=== PATIENT | male | born 1950 | race Caucasian/White ===

== ENCOUNTER → 2016-04-09 | Outpatient (REF) | payer MEDICARE, OTHER ==
[2016-04-09 12:12] LABS: ALBUMIN 3.8 GM/DL (3.2-5.2); ALBUMIN/GLOBULIN RATIO 1.09 (1.00-1.93); ALKALINE PHOSPHATASE 95 U/L (45-117); ALT/SGPT 47 U/L (12-78); ANION GAP 9 MEQ/L (8-16); AST/SGOT 26 U/L (15-37); BILIRUBIN,TOTAL 1.1 MG/DL (0.2-1.0); BLOOD UREA NITROGEN 13 MG/DL (7-18); CALCIUM LEVEL 8.8 MG/DL (8.8-10.2); CARBON DIOXIDE LEVEL 29 MEQ/L (21-32); CHLORIDE LEVEL 105 MEQ/L (98-107); CHOLESTEROL LEVEL 168 MG/DL (<200); CREATININE FOR GFR 0.85 MG/DL (0.70-1.30); GLOMERULAR FILTRATION RATE > 60.0 (>49); GLUCOSE, FASTING 109 MG/DL (80-110); POTASSIUM SERUM 4.2 MEQ/L (3.5-5.1); SODIUM LEVEL 143 MEQ/L (136-145); TOTAL PROTEIN 7.3 GM/DL (6.4-8.2); TRIGLYCERIDES LEVEL 92 MG/DL (<150)
== END ==
LOC: M SFHCPLAZ 09:11
PROVIDERS: ATTEND Family Medicine
DX: E78.5 Hyperlipidemia, unspecified (principal); R97.20 Elevated prostate specific antigen [PSA]

== ENCOUNTER → 2016-08-12 | Outpatient (CLI) | payer MEDICARE, OTHER ==
[~2016-08-12] VITALS: Ht 182.9 cm; Wt 99.8 kg
[~2016-08-12] MED LIST: ALPR0.25 PO; ASPI1TAB PO; ASPI81CH PO; ATOR1TAB21 PO; CITA20TA4 PO; LIDOCAINE 2% INJ 100 MG/5 ML SDV (FOR ANES.) As Ordered ONE; NS 1,000 ML IV SCH; PROPOFOL 200 MG/20 ML VIAL As Ordered ONE
--- NOTE | 2016-08-12 11:35 | ROOR ---
Patient Name: Mateus Diaz Procedure Date: 08/12/2016 11:15 AM Date of : 1950 Age: 65 Room: [facility] Gender: Male Note Status: Finalized Procedure: Total Colonoscopy to Cecum Indications: Screening for colorectal malignant neoplasm, Last colonoscopy: 2006 Providers: Alexander Alonso MD Referring MD: Derick Darden MD Requesting Provider: Medicines: Monitored Anesthesia Care Complications: No immediate complications. Procedure: Pre-Anesthesia Assessment: - The heart rate, respiratory rate, oxygen saturations, blood pressure, adequacy of pulmonary ventilation, and response to care were monitored throughout the procedure. The Colonoscope was introduced through the anus and advanced to the cecum, identified by appendiceal orifice and ileocecal valve. The colonoscopy was performed without difficulty. The patient tolerated the procedure well. The quality of the bowel preparation was good. Findings: The perianal and digital rectal examinations were normal. Non-bleeding internal hemorrhoids were found during retroflexion. The hemorrhoids were small and Grade I (internal hemorrhoids that do not prolapse). A diminutive polyp was found at 40 cm proximal to the anus. The polyp was sessile. The polyp was removed with a jumbo cold forceps. Resection and retrieval were complete. The exam was otherwise without abnormality on direct and retroflexion views. Multiple small and large-mouthed diverticula were found in the recto-sigmoid colon, sigmoid colon and descending colon. Impression: - Non-bleeding internal hemorrhoids. - One diminutive polyp at 40 cm proximal to the anus, removed with a jumbo cold forceps. Resected and retrieved. - The examination was otherwise normal on direct and retroflexion views. - Diverticulosis in the recto-sigmoid colon, in the sigmoid colon and in the descending colon. - The exam was otherwise normal to the cecum. Recommendation: - Patient has a contact number available for emergencies. The signs and symptoms of potential delayed complications were discussed with the patient. Return to normal activities tomorrow. Written discharge instructions were provided to the patient. - Discharge patient to home. - Continue present medications. - Await pathology results. - Telephone GI clinic for pathology results in 1 week. - Check Portal Online for Path Results.([email or web address] - Repeat colonoscopy in 10 years for surveillance based on pathology results. - Return to referring physician. - The findings and recommendations were discussed with the patient's family. Alexander Alonso MD Alexander Alonso MD 08/12/2016 11:35:27 AM This report has been signed electronically. Number of Addenda: 0 Note Initiated On: 08/12/2016 11:15 AM Estimated Blood Loss: Estimated blood loss: none.
[2016-08-12 11:55] VITALS: BP 133/74
== END | disposition home or self-care (01) ==
LOC: M OPP 09:58
PROVIDERS: ATTEND Internal Medicine Gastroenterology
DX: Z12.11 Encounter for screening for malignant neoplasm of colon (principal); D12.5 Benign neoplasm of sigmoid colon; K64.0 First degree hemorrhoids; K57.30 Diverticulosis of large intestine without perforation or abscess without bleeding; E78.5 Hyperlipidemia, unspecified; F32.9 Major depressive disorder, single episode, unspecified; F41.9 Anxiety disorder, unspecified; M19.90 Unspecified osteoarthritis, unspecified site; Z85.51 Personal history of malignant neoplasm of bladder; Z92.21 Personal history of antineoplastic chemotherapy; Z79.82 Long term (current) use of aspirin; Z79.899 Other long term (current) drug therapy

== ENCOUNTER → 2016-10-01 | Outpatient (REF) | payer MEDICARE, OTHER ==
[~2016-10-01] MED LIST changes: -LIDOCAINE 2% INJ 100 MG/5 ML SDV (FOR ANES.) As Ordered ONE; -NS 1,000 ML IV SCH; -PROPOFOL 200 MG/20 ML VIAL As Ordered ONE
[2016-10-01 12:25] LABS: MEAN CORPUSCULAR HEMOGLOBIN 31.4 pg (27.0-33.0); MEAN CORPUSCULAR HGB CONC 33.8 g/dl (32.0-36.5); MEAN CORPUSCULAR VOLUME 93.1 fl (80.0-96.0); RED CELL DISTRIBUTION WIDTH 12.4 % (11.5-14.5); WHITE BLOOD COUNT 8.8 K/mm3 (4.0-10.0)
[2016-10-01 12:42] LABS: ALBUMIN 3.8 GM/DL (3.2-5.2); ALBUMIN/GLOBULIN RATIO 1.09 (1.00-1.93); ALKALINE PHOSPHATASE 92 U/L (45-117); ALT/SGPT 39 U/L (12-78); ANION GAP 7 MEQ/L (8-16); AST/SGOT 23 U/L (15-37); BILIRUBIN,TOTAL 0.9 MG/DL (0.2-1.0); BLOOD UREA NITROGEN 16 MG/DL (7-18); CALCIUM LEVEL 8.5 MG/DL (8.8-10.2); CARBON DIOXIDE LEVEL 29 MEQ/L (21-32); CHLORIDE LEVEL 108 MEQ/L (98-107); CHOLESTEROL LEVEL 166 MG/DL (<200); GLOMERULAR FILTRATION RATE > 60.0 (>49); GLUCOSE, FASTING 116 MG/DL (80-110); POTASSIUM SERUM 4.7 MEQ/L (3.5-5.1); SODIUM LEVEL 144 MEQ/L (136-145); TOTAL PROTEIN 7.3 GM/DL (6.4-8.2); TRIGLYCERIDES LEVEL 83 MG/DL (<150)
== END ==
LOC: M SFHCADAM 09:39
PROVIDERS: ATTEND Family Medicine
DX: C67.9 Malignant neoplasm of bladder, unspecified (principal); E78.5 Hyperlipidemia, unspecified

== ENCOUNTER → 2017-04-23 | Outpatient (REF) | payer MEDICARE, OTHER ==
[2017-04-23 13:24] LABS: ALBUMIN 4.2 GM/DL (3.2-5.2); ALBUMIN/GLOBULIN RATIO 1.24 (1.00-1.93); ALKALINE PHOSPHATASE 98 U/L (45-117); ALT/SGPT 42 U/L (12-78); ANION GAP 8 MEQ/L (8-16); AST/SGOT 29 U/L (7-37); BILIRUBIN,TOTAL 1.3 MG/DL (0.2-1.0); BLOOD UREA NITROGEN 24 MG/DL (7-18); CARBON DIOXIDE LEVEL 29 MEQ/L (21-32); CHLORIDE LEVEL 105 MEQ/L (98-107); CHOLESTEROL LEVEL 170 MG/DL (<200); CHOLESTEROL RISK RATIO 3.148 (<5); CREATININE FOR GFR 0.99 MG/DL (0.70-1.30); GLOMERULAR FILTRATION RATE > 60.0 (>49); GLUCOSE, FASTING 131 MG/DL (70-100); HDL CHOLESTEROL 54 MG/DL (>40); LDL CHOLESTEROL 100.8 MG/DL (<100); NON-HDL-C 116 MG/DL; POTASSIUM SERUM 4.1 MEQ/L (3.5-5.1); SODIUM LEVEL 142 MEQ/L (136-145); TOTAL PROTEIN 7.6 GM/DL (6.4-8.2); TRIGLYCERIDES LEVEL 76 MG/DL (<150)
== END ==
LOC: M SFHCADAM 08:21
DX: E78.5 Hyperlipidemia, unspecified (principal)
CPT/HCPCS: 80053

== ENCOUNTER → 2017-09-23 | Outpatient (REF) | payer MEDICARE, OTHER | LOC: M LAB REF 14:10 | DX: C44.521 Squamous cell carcinoma of skin of breast (principal) | CPT/HCPCS: 88305 ==

== ENCOUNTER → 2017-10-27 | Outpatient (REF) | payer MEDICARE, OTHER ==
[2017-10-27 15:00] LABS: ALBUMIN 4.1 GM/DL (3.2-5.2); ALBUMIN/GLOBULIN RATIO 1.24 (1.00-1.93); ALKALINE PHOSPHATASE 79 U/L (45-117); ALT/SGPT 48 U/L (12-78); ANION GAP 8 MEQ/L (8-16); AST/SGOT 33 U/L (7-37); BILIRUBIN,TOTAL 0.8 MG/DL (0.2-1.0); BLOOD UREA NITROGEN 16 MG/DL (7-18); CALCIUM LEVEL 9.1 MG/DL (8.8-10.2); CARBON DIOXIDE LEVEL 30 MEQ/L (21-32); CHLORIDE LEVEL 107 MEQ/L (98-107); CHOLESTEROL LEVEL 168 MG/DL (<200); CHOLESTEROL RISK RATIO 3.169 (<5); CREATININE FOR GFR 0.85 MG/DL (0.70-1.30); GLOMERULAR FILTRATION RATE > 60.0 (>49); GLUCOSE, FASTING 106 MG/DL (70-100); HDL CHOLESTEROL 53 MG/DL (>40); LDL CHOLESTEROL 100 MG/DL (<100); NON-HDL-C 115 MG/DL; POTASSIUM SERUM 4.6 MEQ/L (3.5-5.1); SODIUM LEVEL 145 MEQ/L (136-145); TOTAL PROTEIN 7.4 GM/DL (6.4-8.2); TRIGLYCERIDES LEVEL 73 MG/DL (<150)
[2017-10-27 15:51] LABS: ESTIMATED AVERAGE GLUCOSE 128 MG/DL (60-110); HEMOGLOBIN A1c 6.1 %
== END ==
LOC: M SFHCADAM 08:10
DX: E78.5 Hyperlipidemia, unspecified (principal); R73.01 Impaired fasting glucose
CPT/HCPCS: 80053

== ENCOUNTER → 2017-12-10 | Outpatient (CLI) | payer MEDICARE, OTHER | LOC: M RAD 09:33 | DX: N43.2 Other hydrocele (principal); N50.3 Cyst of epididymis; Z23 Encounter for immunization; I10 Essential (primary) hypertension | CPT/HCPCS: 76870 ==

== ENCOUNTER → 2018-01-17 | Outpatient (REF) | payer MEDICARE, OTHER ==
[2018-01-17 18:07] LABS: HEMATOCRIT 44.5 % (42.0-52.0); HEMOGLOBIN 14.7 g/dl (13.5-17.5); MEAN CORPUSCULAR HEMOGLOBIN 30.9 pg (27.0-33.0); MEAN CORPUSCULAR VOLUME 93.5 fl (80.0-96.0); PLATELET COUNT, AUTOMATED 228 10^3/uL (150-450); RED BLOOD COUNT 4.76 10^6/uL (4.30-6.10); RED CELL DISTRIBUTION WIDTH 12.1 % (11.5-14.5); WHITE BLOOD COUNT 8.2 10^3/uL (4.0-10.0)
[2018-01-17 18:08] LABS: ANION GAP 4 MEQ/L (8-16); BLOOD UREA NITROGEN 19 MG/DL (7-18); CALCIUM LEVEL 8.4 MG/DL (8.8-10.2); CARBON DIOXIDE LEVEL 32 MEQ/L (21-32); CHLORIDE LEVEL 104 MEQ/L (98-107); CREATININE FOR GFR 0.85 MG/DL (0.70-1.30); GLOMERULAR FILTRATION RATE > 60.0 (>49); GLUCOSE, FASTING 95 MG/DL (70-100); POTASSIUM SERUM 4.5 MEQ/L (3.5-5.1); SODIUM LEVEL 140 MEQ/L (136-145)
[2018-01-17 18:25] LABS: INR 0.96; PROTHROMBIN TIME 12.8 SECONDS (12.1-14.4)
[2018-01-17 18:26] LABS: PARTIAL THROMBOPLASTIN TIME 30.8 SECONDS (25.4-37.6)
== END ==
LOC: M LABDRWAD 16:43
DX: Z01.812 Encounter for preprocedural laboratory examination (principal); C67.9 Malignant neoplasm of bladder, unspecified
CPT/HCPCS: 80048

== ENCOUNTER → 2019-01-11 | Outpatient (REF) | payer MEDICARE, OTHER ==
[~2019-01-11] MED LIST changes: -ASPI1TAB PO; -ASPI81CH PO; +ASPI81CH49 PO; +ASPI81TA26 PO; -CITA20TA4 PO; +CITA20TA6 PO
[2019-01-11 14:03] LABS: ALBUMIN 3.8 GM/DL (3.2-5.2); ALT/SGPT 51 U/L (12-78); BILIRUBIN,TOTAL 1.1 MG/DL (0.2-1.0); BLOOD UREA NITROGEN 20 MG/DL (7-18); CALCIUM LEVEL 9.4 MG/DL (8.8-10.2); CARBON DIOXIDE LEVEL 31 MEQ/L (21-32); CHLORIDE LEVEL 105 MEQ/L (98-107); CHOLESTEROL LEVEL 175 MG/DL (<200); CHOLESTEROL RISK RATIO 3.181 (<5); CREATININE FOR GFR 0.88 MG/DL (0.70-1.30); GLOMERULAR FILTRATION RATE > 60.0 (>42); GLUCOSE, FASTING 115 MG/DL (70-100); HDL CHOLESTEROL 55 MG/DL (>40); LDL CHOLESTEROL 106 MG/DL (<100); NON-HDL-C 120 MG/DL; POTASSIUM SERUM 4.6 MEQ/L (3.5-5.1); SODIUM LEVEL 141 MEQ/L (136-145); TOTAL PROTEIN 7.3 GM/DL (6.4-8.2); TRIGLYCERIDES LEVEL 72 MG/DL (<150)
[2019-01-11 14:10] LABS: HEMOGLOBIN A1c 6.6 %
== END ==
LOC: M SFHCADAM 09:12
PROVIDERS: ATTEND Family Medicine
DX: E78.5 Hyperlipidemia, unspecified (principal); R73.01 Impaired fasting glucose

== ENCOUNTER → 2019-03-24 | Outpatient (REF) | payer MEDICARE, OTHER | LOC: M LAB REF 09:17 | PROVIDERS: ATTEND Dermatology | DX: L82.1 Other seborrheic keratosis (principal) | CPT/HCPCS: 11102; 11103; 17000; 17003; 88305; G0463 ==

== ENCOUNTER → 2019-07-19 | Outpatient (REF) | payer MEDICARE, OTHER ==
[2019-07-19 13:36] LABS: HEMOGLOBIN A1c 6.4 %
[2019-07-19 13:42] LABS: BLOOD UREA NITROGEN 19 MG/DL (7-18); CREATININE FOR GFR 0.87 MG/DL (0.70-1.30); GLUCOSE, FASTING 118 MG/DL (70-100)
[2019-07-19 13:43] LABS: ALBUMIN 3.9 GM/DL (3.2-5.2); ALT/SGPT 69 U/L (12-78); BILIRUBIN,TOTAL 0.9 MG/DL (0.2-1.0); CALCIUM LEVEL 8.9 MG/DL (8.8-10.2); CARBON DIOXIDE LEVEL 29 MEQ/L (21-32); CHLORIDE LEVEL 108 MEQ/L (98-107); CHOLESTEROL LEVEL 170 MG/DL (<200); CHOLESTEROL RISK RATIO 3.035 (<5); GLOMERULAR FILTRATION RATE > 60.0 (>42); HDL CHOLESTEROL 56 MG/DL (>40); LDL CHOLESTEROL 102 MG/DL (<100); NON-HDL-C 114 MG/DL; POTASSIUM SERUM 4.8 MEQ/L (3.5-5.1); SODIUM LEVEL 142 MEQ/L (136-145); TOTAL PROTEIN 7.2 GM/DL (6.4-8.2); TRIGLYCERIDES LEVEL 62 MG/DL (<150)
== END ==
LOC: M SFHCADAM 09:15
PROVIDERS: ATTEND Family Medicine
DX: E78.5 Hyperlipidemia, unspecified (principal); R73.01 Impaired fasting glucose; C67.9 Malignant neoplasm of bladder, unspecified

== ENCOUNTER → 2019-07-19 | Outpatient (REF) | payer MEDICARE, OTHER ==
[2019-07-19 13:31] LABS: ALT/SGPT 66 U/L (12-78); BLOOD UREA NITROGEN 20 MG/DL (7-18); CALCIUM LEVEL 9.3 MG/DL (8.8-10.2); CARBON DIOXIDE LEVEL 29 MEQ/L (21-32); CHLORIDE LEVEL 107 MEQ/L (98-107); CREATININE FOR GFR 0.88 MG/DL (0.70-1.30); GLOMERULAR FILTRATION RATE > 60.0 (>42); GLUCOSE, FASTING 112 MG/DL (70-100); POTASSIUM SERUM 4.8 MEQ/L (3.5-5.1); SODIUM LEVEL 140 MEQ/L (136-145); TOTAL PROTEIN 7.2 GM/DL (6.4-8.2)
== END ==
LOC: M LABDRWAD 12:39
PROVIDERS: ATTEND Urology
DX: C67.9 Malignant neoplasm of bladder, unspecified (principal)

== ENCOUNTER → 2019-07-26 | Outpatient (CLI) | payer MEDICARE, OTHER ==
[~2019-07-26] MED LIST changes: +ISOVUE-370 76% 100ML VIAL As Ordered ONE
--- NOTE | 2019-07-26 15:25 | REP ---
CT UROGRAPHY, MULTIPHASE POSTCONTRAST AND PRECONTRAST CT STUDY ABDOMEN AND PELVIS: HISTORY: Bladder carcinoma. COMPARISON STUDY: January 06, 2016. CT CONTRAST DOSE: 100 mL of intravenous Isovue 370. CT FINDINGS: Preliminary digital department store manager radiograph is unremarkable. The lung bases are clear on axial CT images. The liver is normal in size homogeneous in texture. There are two small subcentimeter cysts in the liver. There is a small area of calcification and hypodensity in the right lobe posteriorly consistent with an old injury. The hypodensity measures approximately 15 mm in greatest diameter. This is unchanged from the 2016 prior study and is felt to be benign. No abnormalities noted in the pancreas. The gallbladder is unremarkable. Small and large intestinal bowel loops are remarkable for left colonic diverticulosis without CT evidence of diverticulitis. Normal appendix. Vascular calcifications noted. Normal aortic caliber. There is no evidence of hydronephrosis on either side. No bladder mass-lesion is evident. No evidence of intrarenal calculus is observed. Prostate and seminal vesicles are unremarkable. Delayed postcontrast injection images show no evidence of filling defect in the urinary bladder or upper tract collecting system on either side. IMPRESSION: No evidence of mass or adenopathy. Left colonic diverticulosis. No acute abnormality. No splenic abnormality is observed. Normal adrenal glands are seen bilaterally. Electronically Signed by Vini Rico MD 07/26/2019 05:19 P
--- NOTE | 2019-07-26 15:42 | REP ---
CHEST X-RAY: Two views. HISTORY: Bladder cancer. COMPARISON STUDY: April 01, 2015. FINDINGS: The lungs are symmetrically aerated and free of infiltrate. Pleural angles are sharp. Heart is not enlarged. There are mild degenerative changes in the thoracic spine and aorta. Pulmonary vasculature is not increased. IMPRESSION: No active disease. Electronically Signed by Vini Rico MD 07/26/2019 05:20 P
== END ==
LOC: M RAD 12:35
PROVIDERS: ATTEND Urology
DX: C67.9 Malignant neoplasm of bladder, unspecified (principal)
CPT/HCPCS: 71046; 74178; Q9967

== ENCOUNTER → 2020-09-12 | Outpatient (CLI) | payer MEDICARE, OTHER ==
[~2020-09-12] MED LIST changes: -ISOVUE-370 76% 100ML VIAL As Ordered ONE
[2020-09-12 11:17] LABS: ALT/SGPT 56 U/L (12-78); BILIRUBIN,TOTAL 0.8 MG/DL (0.2-1.0); BLOOD UREA NITROGEN 17 MG/DL (7-18); CALCIUM LEVEL 9.4 MG/DL (8.8-10.2); CARBON DIOXIDE LEVEL 30 MEQ/L (21-32); CHLORIDE LEVEL 108 MEQ/L (98-107); CHOLESTEROL LEVEL 162 MG/DL (<200); CHOLESTEROL RISK RATIO 3.306 (<5); CREATININE FOR GFR 0.83 MG/DL (0.70-1.30); GLOMERULAR FILTRATION RATE > 60.0 (>42); GLUCOSE, FASTING 129 MG/DL (70-100); HDL CHOLESTEROL 49 MG/DL (>40); LDL CHOLESTEROL 99 MG/DL (<100); NON-HDL-C 113 MG/DL; POTASSIUM SERUM 4.5 MEQ/L (3.5-5.1); SODIUM LEVEL 143 MEQ/L (136-145); TOTAL PROTEIN 7.5 GM/DL (6.4-8.2); TRIGLYCERIDES LEVEL 72 MG/DL (<150)
== END ==
LOC: M PLALAB 08:20
PROVIDERS: ATTEND Family Medicine
DX: E78.5 Hyperlipidemia, unspecified (principal)

== ENCOUNTER 2020-10-18 05:19 | Inpatient (IN) | payer MEDICARE, OTHER ==
[~2020-10-18] VITALS: Ht 182.9 cm; Wt 97.5 kg
[2020-10-18 06:48] LABS: BILIRUBIN, URINE MANUAL NEGATIVE (NEGATIVE); GLUCOSE, URINE (UA) MANUAL 1+(100 MG/DL) mg/dL (NEGATIVE); KETONE, URINE MANUAL NEGATIVE (NEGATIVE); UROBILINOGEN, URINE MANUAL NORMAL (NORMAL)
[2020-10-18 06:50] LABS: BACTERIA, URINE NONE SEEN; HYALINE CAST, URINE NONE SEEN /lpf (0-1); RBC, URINE TNTC /hpf (0-3); SQUAMOUS EPITHELIAL CELL URINE NONE SEEN /hpf (SMALL AMT)
[2020-10-18 06:50] LABS: BASO # 0.1 10^3/uL (0.0-0.2); BASO % 1.3 % (0.0-1.0); EOS # 0.1 10^3/uL (0.0-0.5); HEMATOCRIT 42.5 % (42.0-52.0); HEMOGLOBIN 14.2 g/dl (13.5-17.5); LYMPH # 1.1 10^3/uL (1.5-5.0); LYMPH % 14.6 % (24.0-44.0); MEAN CORPUSCULAR HEMOGLOBIN 30.9 pg (27.0-33.0); MEAN CORPUSCULAR HGB CONC 33.4 g/dl (32.0-36.5); MEAN CORPUSCULAR VOLUME 92.4 fl (80.0-96.0); MONO # 0.6 10^3/uL (0.0-0.8); MONO % 7.2 % (2.0-8.0); NEUTROPHILS # 5.9 10^3/uL (1.5-8.5); NEUTROPHILS % 75.4 % (36.0-66.0); PLATELET COUNT, AUTOMATED 204 10^3/uL (150-450); WHITE BLOOD COUNT 7.8 10^3/uL (4.0-10.0)
[2020-10-18] MEDS ORDERED: LIDOCAINE 2% 5ML JELLY UROJET As Ordered ONE (07:50)
[2020-10-18] MEDS ORDERED: BACTRIM 160MG/800MG DS TAB PO ONE (08:40)
[2020-10-18] MEDS ORDERED: LIDOCAINE 2% 5ML JELLY UROJET TOP ONE (08:45)
[2020-10-18] MEDS ORDERED: HOME MED LIST COMPLETE! XX SCH (08:50)
[2020-10-18] MEDS ORDERED: ALPRAZolam 0.25 MG TAB PO ONE (08:50)
[2020-10-18] MEDS ORDERED: ALPRAZolam 0.25 MG TAB PO PRN (09:40)
[2020-10-18] MEDS ORDERED: GLUCOSE 4GM CHEW TABLET PO PRN (09:45)
[2020-10-18] MEDS ORDERED: GLUCAGON INJ 1MG VIAL SC PRN (09:45)
[2020-10-18] MEDS ORDERED: DEXTROSE 50% 50 ML SYRINGE IV PRN (09:45)
[2020-10-18 09:54] LABS: RSV AMPLIFICATION NEGATIVE (NEGATIVE)
--- NOTE | 2020-10-18 10:01 | HPEPDOC ---
General Date of Admission 10/18/20 Date of Service: Oct 18, 2020 Chief Complaint The patient is a 70-year-old male admitted with a reason for visit of Unable To Urinate. Source: Patient Exam Limitations: No limitations History of Present Illness Patient is 71 years old male with past medical history of hyperlipidemia, type 2 diabetes, BPH, hypertension, bladder cancer status post TURB presented to hospital with hematuria. Patient stated that he had TURB on October 02 and after that he had intermittent hematuria. Yesterday he noticed that hematuria progressively became worse he developed blood clots in his urine and subsequently urinary retention. He went to ER Ernst catheter was placed. ER contacted to urologist Dr. Mejia who recommended continuous bladder irrigation. In ER patient was found to have no leukocytosis, hemoglobin of 14.2. Patient denied fever, chills, nausea, syncope, chest pain, palpitations, diarrhea Home Medications Scheduled Aspirin (Aspirin EC) 81 Mg Tab, 81 MG PO DAILY, (Reported) Atorvastatin Calcium (Atorvastatin Calcium) 20 Mg Tab, 20 MG PO QPM, (Reported) Citalopram Hydrobromide (Citalopram HBr) 20 Mg Tab, 20 MG PO DAILY, (Reported) Scheduled PRN Alprazolam (Alprazolam) 0.25 Mg Tab, 0.25 MG PO BID PRN for ANXIETY, (Reported) Allergies Coded Allergies: No Known Allergies (Unverified , 08/04/16) Past Medical History Medical History HYPERLIPIDEMIA TYPE 2 DM, DX 09/28 BPH RENAL STONES--S/P LITHOTRIPSY HTN GILBERT'S SYNDROME BPPV ANXIETY DISORDER BLADDER CANCER 02/24 [place] (NO PATH), S/P BCG TX; CYSTO Q 6 MO Surgical History Resection of bladder cancer in 2020 GAYLE REMOVED FROM RIGHT PENTECOSTAL 7 YEARS OLD LITHOTRIPSY 1989 COLONOSCOPY 2006 BLADDER CANCER--CYSTO 01/20/16 CYSTOSCOPY 09/24 BLADDER SURGERY 09/24 [facility] LEFT BREAST 2018 Family History FATHER: , CORONARY ARTERY DISEASE, BLADDER CA, ANXIETY MOTHER: , ALZHEIMER PATERNAL GRAND MOTHER: STOMACH CA NO DM, REVIEWED, UPDATEDDENIES FH OF MELANOMA OR SKIN CANCER. Social History * Smoker: Denies Alcohol: Denies Drugs: denies A-FIB/CHADSVASC A-FIB History Current/History of A-Fib/PAF?: No Current PO Anticoag Therapy: No Review of Systems Constitutional: Denies: Chills, Fever Eyes: Denies: Pain ENT: Denies: Head Aches Skin: Denies: Rash Pulmonary: Denies: Dyspnea Cardiovascular: Denies: Chest Pain Gastrointestinal: Denies: Nausea, Vomiting Genitourinary: Reports: Dysuria, Hematuria Hematologic: Denies: Bruising Endocrine: Denies: Polydipsia Musculoskeletal: Denies: Neck Pain Neurological: Denies: Weakness Psych: Reports: Mood Normal Physical Examination General Exam: Positive: Alert, Cooperative Eye Exam: Positive: PERRLA ENT Exam: Positive: Atraumatic Neck Exam: Positive: Supple; Negative: JVD Chest Exam: Positive: Clear to auscultation Heart Exam: Positive: Rate Normal Telemetry: Positive: No significant arrhythmia Abdomen Exam: Positive: Normal bowel sounds Extremity Exam: Negative: Clubbing Skin Exam: Positive: Nl turgor and temperature Neuro Exam: Positive: Normal Gait Psych Exam: Positive: Mental status NL Vital Signs Vital Signs Date Time Temp Pulse Resp B/P (MAP) Pulse Ox O2 Delivery O2 Flow Rate FiO2 10/18/20 08:30 98.8 72 20 159/87 (111) 94 Room Air Laboratory Data Labs 24H Laboratory Tests 2 10/18/20 06:21: Urine Color (SARA) REDH, Urine Appearance (SARA) TURBIDH, Urine pH (SARA) 7.0, Urine Specific [place] (SARA) 1.015, Urine Protein 3+H, Bedside Urine Glucose (UA) 1+(100 MG/DL)H, Bedside Urine Ketones (LAB) NEGATIVE, Bedside Urine Blood POSITIVEH, Bedside Urine Nitrite (LAB) NEGATIVE, Bedside Urine Bilirubin (LAB) NEGATIVE, Bedside Urine Urobilinogen (LAB) NORMAL, Bedside Urine Leukocyte Esterase (L POSITIVEH, Urine Sediment Examination PERFORMED, Urine RBC TNTCH, Urine WBC TNTCH, Urine Squamous Epithelial Cells NONE SEEN, Urine Bacteria NONE SEEN, Urine Hyaline Casts NONE SEEN 10/18/20 06:27: Immature Granulocyte % (Auto) 0.5, Neutrophils (%) (Auto) 75.4H, Lymphocytes (%) (Auto) 14.6L, Monocytes (%) (Auto) 7.2, Eosinophils (%) (Auto) 1.0, Basophils (%) (Auto) 1.3H, Neutrophils # (Auto) 5.9, Lymphocytes # (Auto) 1.1L, Monocytes # (Auto) 0.6, Eosinophils # (Auto) 0.1, Basophils # (Auto) 0.1, Nucleated Red Blood Cells % (auto) 0.0 10/18/20 06:45: POC Glucose (Misc Panel) 143H, POC Sodium (Misc Panel) 141, POC Potassium (Misc Panel) 3.7, POC Chloride (Misc Panel) 104, POC Total CO2 (Misc Panel) 24.0, POC Blood Urea Nitrogen (Misc Panel 18, POC Ionized Calcium (Misc Panel) 4.5, POC Creatinine (Misc Panel) 0.8, POC Hematocrit (Misc Panel) 45.0 10/18/20 09:11: CBC/BMP Laboratory Tests 10/18/20 06:27 Microbiology Microbiology 10/18/20 Urine Culture, Received Pending Assessment/Plan Patient is 71 years old male with past medical history of hyperlipidemia, type 2 diabetes, BPH, hypertension, bladder cancer status post TURB presented to hospital with hematuria. Patient stated that he had TURB on October 02 and after that he had intermittent hematuria. Yesterday he noticed that hematuria progressively became worse he developed blood clots in his urine and subseque ntly urinary retention. He went to ER Ernst catheter was placed. ER contacted to urologist Dr. Mejia who recommended continuous bladder irrigation. In ER patient was found to have no leukocytosis, hemoglobin of 14.2. Patient denied fever, chills, nausea, syncope, chest pain, palpitations, diarrhea Problems (1) Hematuria Status: Acute Problem Text: Dr. Mejia recommended to continue bladder irrigation and she rec ommended Bactrim p.o. empirically N.p.o. after midnight for possible cystoscopy (2) Bladder cancer Status: Chronic Problem Text: Follow-up with urologist in the outpatient settings (3) Hypertension Status: Chronic Problem Text: I added lisinopril 10 mg to his regimen (4) Type 2 diabetes mellitus Problem Text: Diabetes diet Insulin sliding scale (5) Hyperlipidemia Status: Chronic Problem Text: Continue statin Plan / VTE VTE Prophylaxis Ordered?: No VTE Exclusion Pharmacological: Active Bleeding SUZE AGOSTO DO Oct 18, 2020 10:01
[2020-10-18] MEDS: ASPIRIN 81MG ENTERIC TABLET PO SCH (10:21)
[2020-10-18] MEDS: CitaloPRAM (CeleXA) 20 MG TAB PO SCH (10:22)
[2020-10-18] MEDS: HumaLOG INSULIN (NovoLOG) PER UNIT SC SCH ×3 (13:36→20:19)
[2020-10-18 14:31] LABS: HEMATOCRIT 42.8 % (42.0-52.0); HEMOGLOBIN 14.3 g/dl (13.5-17.5)
[2020-10-18] MEDS: BELLADONNA 16.2mg/OPIUM 60mg 1 EA SUPP PR PRN ×2 (14:40→19:58)
[2020-10-18 15:00] VITALS: BP 156/74
--- NOTE | 2020-10-18 15:09 | CR.PDOC ---
General Date of Consultation: Oct 18, 2020 Referring Provider: SUZE AGOSTO DO Consultation REASON FOR CONSULTATION/CHIEF COMPLAINT: Gross hematuria HISTORY OF PRESENT ILLNESS: The patient is a 70-year-old gentleman who came through the emergency room today status post a TURBT on October 02. The patient originally had to go back through the emergency room in [place] on October 03 for bleeding and clot retention and a Ernst catheter was placed. This was left in for 1 week. The catheter was removed last week and he was doing well until he started to begin noticing hematuria and blood clots again and difficulty urinating. When a catheter was placed in the emergency room today he had a large amount of blood clots and I recommended starting him on continuous bladder irrigation. The urinalysis did show too numerous to count white and red blood cells. Prior to the catheter being put in today he did have some urinary urgency and mild dysuria. He denied any significant nausea, vomiting, fever, or chills. He has a history of a kidney stone but this was over 30 or 40 years ago and has not had any problems with stones since. I did review his CT scan from July 2019 and this showed no kidney stones. His H&H was stable at 14.2/42.5. 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 He has had BCG on and off for many years and he has had multiple small recurrences. This last recurrence though might have been encroaching onto the prostate and it sounds like they might of removed part of the prostate during the resection. ALLERGIES: Please see below. HOME MEDICATIONS: Please see below. 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 This is a well-developed well-nourished gentleman in no apparent respiratory distress. He is alert and oriented x3. His neck is supple and his eyes are PERRL his lungs are clear and his heart has a regular rate and rhythm. He has no CVA tenderness. He does have some suprapubic tenderness but no rebound or guarding. His extremities show no cyanosis clubbing or edema. His skin exam shows normal turgor. A neurologic exam is nonfocal. LABORATORY DATA: Please see below. ASSESSMENT/PLAN: -Gross hematuria and clot retention status post a TURBT 10/01/2020 in [place] in a patient not on any anticoagulants. I hand irrigated his catheter in the emergency room and got out no further clots. He is doing well right now on continuous bladder irrigation. We will follow him overnight and if he continues to have significant clots or bleeding then we will plan on doing a cystoscopy, clot irrigation, possible biopsies, and fulguration sometime tomorrow. -Obtain records from [place] including the operative report and any diagnostic imaging Vital Signs/I&O Vital Signs Date Time Temp Pulse Resp B/P (MAP) Pulse Ox O2 Delivery O2 Flow Rate FiO2 10/18/20 14:30 81 20 95 Room Air 10/18/20 13:30 149/76 (100) 10/18/20 08:30 98.8 Laboratory Data Labs 24H Laboratory Tests 2 10/18/20 06:21: Urine Color (SARA) REDH, Urine Appearance (SARA) TURBIDH, Urine pH (SARA) 7.0, Urine Specific [place] (SARA) 1.015, Urine Protein 3+H, Bedside Urine Glucose (UA) 1+(100 MG/DL)H, Bedside Urine Ketones (LAB) NEGATIVE, Bedside Urine Blood POSITIVEH, Bedside Urine Nitrite (LAB) NEGATIVE, Bedside Urine Bilirubin (LAB) NEGATIVE, Bedside Urine Urobilinogen (LAB) NORMAL, Bedside Urine Leukocyte Esterase (L POSITIVEH, Urine Sediment Examination PERFORMED, Urine RBC TNTCH, Urine WBC TNTCH, Urine Squamous Epithelial Cells NONE SEEN, Urine Bacteria NONE SEEN, Urine Hyaline Casts NONE SEEN 10/18/20 06:27: Immature Granulocyte % (Auto) 0.5, Neutrophils (%) (Auto) 75.4H, Lymphocytes (%) (Auto) 14.6L, Monocytes (%) (Auto) 7.2, Eosinophils (%) (Auto) 1.0, Basophils (%) (Auto) 1.3H, Neutrophils # (Auto) 5.9, Lymphocytes # (Auto) 1.1L, Monocytes # (Auto) 0.6, Eosinophils # (Auto) 0.1, Basophils # (Auto) 0.1, Nucleated Red Blood Cells % (auto) 0.0 10/18/20 06:45: POC Glucose (Misc Panel) 143H, POC Sodium (Misc Panel) 141, POC Potassium (Misc Panel) 3.7, POC Chloride (Misc Panel) 104, POC Total CO2 (Misc Panel) 24.0, POC Blood Urea Nitrogen (Misc Panel 18, POC Ionized Calcium (Misc Panel) 4.5, POC Creatinine (Misc Panel) 0.8, POC Hematocrit (Misc Panel) 45.0 10/18/20 09:11: Coronavirus (COVID-19)(PCR) NEGATIVE, Influenza Type A (RT-PCR) NEGATIVE, Influenza Type B (RT-PCR) NEGATIVE, Respiratory Syncytial Virus (PCR) NEGATIVE CBC/BMP Laboratory Tests 10/18/20 06:27 10/18/20 14:15 Microbiology Microbiology 10/18/20 Urine Culture, Received Pending Allergies Coded Allergies: No Known Allergies (Unverified , 08/04/16) Home Medications Scheduled Aspirin (Aspirin EC) 81 Mg Tab, 81 MG PO DAILY, (Reported) Atorvastatin Calcium (Atorvastatin Calcium) 20 Mg Tab, 20 MG PO QPM, (Reported) Citalopram Hydrobromide (Citalopram HBr) 20 Mg Tab, 20 MG PO DAILY, (Reported) Scheduled PRN Alprazolam (Alprazolam) 0.25 Mg Tab, 0.25 MG PO BID PRN for ANXIETY, (Reported) KAYCEE BOX MD Oct 18, 2020 15:09
[2020-10-18 20:18] LABS: HEMATOCRIT 41.7 % (42.0-52.0); HEMOGLOBIN 14.4 g/dl (13.5-17.5)
[2020-10-18] MEDS: BACTRIM 160MG/800MG DS TAB PO SCH (20:24)
[2020-10-18] MEDS: ATORVASTATIN 20 MG TAB PO SCH (20:24)
[2020-10-18] MEDS: ACETAMINOPHEN TAB 650MG DOSE (2X325MG) PO PRN (20:24)
[2020-10-18 22:00] VITALS: BP 140/84
--- NOTE | 2020-10-18 23:09 | IPNPDOC ---
Text Note Date of Service The patient was seen on 10/18/20. NOTE Significant event. Notified by nurse patient requesting to speak to provider due to his discomfort. Patient seen at bedside he is on speaker phone with his fiance and daughter and they interact during the conversation. Patient reports that he "only got comfortable 4 minutes ago" and describes abdominal bloating and discomfort relative to the CBI. Time spent allowing wilbur ent and family members to express their concerns. Pt does seem somewhat anxious and "Ready to have the scope". Patient reports that he is very upset regarding the timing and not having cystoscopy sooner than in the morning. Patient also remarks that he was concerned because he "was supposed to have a CT" but this is not noted in care plan and given the presence of CBI and no upper abdominal pain or GI complaints or back pain at present no acute reason to have CT right now. Also, discussed care plan including for cystoscopy in a.m. after CBI as urology recommended this. Urinary catheter intact and draining no overt clots visualized. Patient does have some suprapubic discomfort and he reports bloated appearance, but unknown given body habitus. Discussed again, goal to make patient comfortable tonight and as long as the CBI is working and there is no clotting/retention -will work for symptom management/supportive control with plan for cystoscopy in a.m. Plan for bladder scan, frequent catheter checking (will be hourly as his CBI rate typically requires bag changing hourly) and pain/ antispasmodic medication. Patient does have Xanax as needed on profile to help with the anxiety related to hospital admission. Pt in agreement with plan. Nurse made aware of plan as well. Update: Bladder scan without retention findings; catheter with good flow and no clots per RN. Pt refusing the aforementioned medications. VS,Fishbone, I+O VS, Fishbone, I+O Laboratory Tests 10/18/20 06:27 10/18/20 14:15 10/18/20 20:06 Vital Signs Date Time Temp Pulse Resp B/P (MAP) Pulse Ox O2 Delivery O2 Flow Rate FiO2 10/18/20 22:00 98.3 80 17 140/84 (102) 96 Room Air DHARA MATA NP Oct 18, 2020 23:09
[2020-10-18] MEDS ORDERED: MORPHINE 2 MG/ML 1ML VIAL (J2270) IV ONE (23:10)
[2020-10-18] MEDS ORDERED: HYOSCYAMINE SULFATE 0.125 MG SUBL TABLET PO ONE (23:10)
[2020-10-19] VITALS (7 sets, daily range): BP systolic 122–134; BP diastolic 63–78
[2020-10-19 02:29] LABS: HEMATOCRIT 40.7 % (42.0-52.0); HEMOGLOBIN 13.7 g/dl (13.5-17.5)
[2020-10-19 06:08] LABS: HEMATOCRIT 40.6 % (42.0-52.0); HEMOGLOBIN 13.8 g/dl (13.5-17.5); MEAN CORPUSCULAR HEMOGLOBIN 31.3 pg (27.0-33.0); MEAN CORPUSCULAR VOLUME 92.1 fl (80.0-96.0); PLATELET COUNT, AUTOMATED 302 10^3/uL (150-450); RED BLOOD COUNT 4.41 10^6/uL (4.30-6.10); WHITE BLOOD COUNT 10.4 10^3/uL (4.0-10.0)
[2020-10-19 06:09] LABS: HEMOGLOBIN 13.9 g/dl (13.5-17.5)
[2020-10-19 06:29] LABS: ALBUMIN 3.5 GM/DL (3.2-5.2); ALT/SGPT 59 U/L (12-78); BILIRUBIN,TOTAL 0.9 MG/DL (0.2-1.0); BLOOD UREA NITROGEN 14 MG/DL (7-18); CALCIUM LEVEL 8.8 MG/DL (8.8-10.2); CARBON DIOXIDE LEVEL 26 MEQ/L (21-32); CHLORIDE LEVEL 109 MEQ/L (98-107); CREATININE FOR GFR 0.85 MG/DL (0.70-1.30); GLOMERULAR FILTRATION RATE > 60.0 (>42); GLUCOSE, FASTING 137 MG/DL (70-100); MAGNESIUM LEVEL 2.2 MG/DL (1.8-2.4); POTASSIUM SERUM 4.1 MEQ/L (3.5-5.1); SODIUM LEVEL 140 MEQ/L (136-145); TOTAL PROTEIN 6.7 GM/DL (6.4-8.2)
[2020-10-19] MEDS: HumaLOG INSULIN (NovoLOG) PER UNIT SC SCH ×4 (07:30→21:00)
[2020-10-19] MEDS ORDERED: PERCOCET 5MG/325MG TAB PO PRN (08:20)
[2020-10-19] MEDS: CitaloPRAM (CeleXA) 20 MG TAB PO SCH (08:37)
[2020-10-19] MEDS: ASPIRIN 81MG ENTERIC TABLET PO SCH (08:38)
[2020-10-19] MEDS: BACTRIM 160MG/800MG DS TAB PO SCH ×2 (08:38→20:11)
[2020-10-19] MEDS ORDERED: MIDAZOLAM INJ 2MG/2ML VIAL (J2250 PER 1MG) As Ordered ONE (10:32)
[2020-10-19] MEDS ORDERED: propofoL 200 MG/20 ML VIAL As Ordered ONE ×2 (10:32→12:19)
[2020-10-19] MEDS ORDERED: dexameTHASONE 4 MG/ML 1ML VIAL (J1100 PER 1MG) As Ordered ONE (10:32)
[2020-10-19] MEDS ORDERED: LIDOCAINE 2% 100MG/5ML SDV (FOR ANES.) As Ordered ONE (10:32)
[2020-10-19] MEDS ORDERED: ONDANSETRON 4MG/2ML VIAL As Ordered ONE (10:32)
--- NOTE | 2020-10-19 10:59 | IPNPDOC ---
Text Note Date of Service The patient was seen on 10/19/20. NOTE Patient was seen this morning and his urine is clear on CBI but he is passing small blood clots which are extremely painful for him. We discussed that we will bring him to the operating room to take a look inside of his bladder but that sometimes we do not find active bleeding that we can stop. He is in understanding and would like to proceed. 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 Supposedly he does not do well when Versed is given during anesthesia. He has difficulty waking up and has mental status changes for the next week. The patient has been getting BNO suppositories for bladder spasms and says that this has been helping him but I will also add tolterodine ER 4 mg. He has taken oxybutynin ER in the past but this can cause worsening of his confusion also. His urine culture came back no growth. Physical exam: This a well-developed well-nourished gentleman lying in a hospital bed in no apparent respiratory distress. He is alert and oriented x3. He has no CVA tenderness. He does have some lower abdominal tenderness. The Ernst catheter is draining clear yellow urine now on low CBI. His extremities show no cyanosis clubbing or edema. Impression: -History of recurrent TCC of the bladder treated in [place] with a TURBT and possible partial prostatic resection 10/01/2020 with urinary retention postoperatively requiring a Ernst catheter to be placed 10/02/2020 which was left in for 1 week. He did well for a week and then came through the ER last night and clot retention. Plan: -Plan cystoscopy, clot irrigation, fulguration if needed, and repeat TURBT if needed. All options, alternatives, risk, benefits were discussed with the patient and the patient's son and informed consent was obtained both verbal and written form. -Continue BNO suppositories for bladder spasming and I will add tolterodine and in the hospital we can only give 2 mg p.o. twice daily but as an outpatient I would do tolterodine extended release 4 mg daily. This was dictated with Kody and not proofread for errors Fabrice ESCOBAR, I+O VS, Fabrice, I+O Laboratory Tests 10/18/20 14:15 9/10/21 20:06 10/19/20 02:16 10/19/20 05:43 Vital Signs Date Time Temp Pulse Resp B/P (MAP) Pulse Ox O2 Delivery O2 Flow Rate FiO2 10/19/20 09:08 18 10/19/20 08:38 129/78 10/19/20 06:00 98.0 82 97 Room Air I&O- Last 24 Hours up to 6 AM 10/19/20 06:00 Intake Total 360 ml Output Total 3775 ml Balance -3415 ml KAYCEE BOX MD Oct 19, 2020 10:59
[2020-10-19] MEDS ORDERED: ACETAMINOPHEN 1000MG 100ML IV BTL (OFIRMEV) (J0131 PER 10MG) As Ordered ONE (11:19)
[2020-10-19] MEDS ORDERED: ceFAZolin 1GM VIAL (J0690 PER 500MG) As Ordered ONE (11:46)
[2020-10-19] MEDS ORDERED: ePHEDrine SULFATE 25 MG/5 ML(5MG/ML) SYRINGE As Ordered ONE (12:06)
[2020-10-19] MEDS ORDERED: PHENYLephrine 500MCG 5ML (100MCG/ML) SYRINGE As Ordered ONE (12:24)
--- NOTE | 2020-10-19 13:06 | ROOPDOC ---
[facility] Report Of Operation Report of Operation DATE OF PROCEDURE: 10/19/20 PREPROCEDURE DIAGNOSES: Gross hematuria and clot retention status post TURBT and partial TURP on 10/01/2020 in [place] POSTPROCEDURE DIAGNOSES: Significant blood clots, necrotic tissue around the bladder neck and prostate with bleeding PROCEDURE PERFORMED: Cystoscopy, clot irrigation, and partial TURP since this is where the bleeding was SURGEON: Afua Box MD ANESTHESIA: General ESTIMATED BLOOD LOSS: Significant amount of bladder clot COMPLICATIONS: None FINDINGS: Significant bladder clots in the bladder which had probably been there since the catheter had been replaced with some necrotic tissue around the previous resection site and active bleeding SPECIMENS REMOVED: Prostatic chips PROCEDURE NOTE: The patient is a 70-year-old gentleman with a history of TCC of the bladder and he had a resection of this done in [place] on 10/01/2020 and it appears as though the abnormal tissue was seen at the bladder neck and the prostatic fossa. This had been resected and on postop day #1 he went into clot retention and a Ernst catheter was placed for a week. This was removed and then he started to bleed again several days later. He came into [facility] 10/18/2020 and a three-way Ernst catheter was placed and multiple clots were irrigated. He was then placed on continuous bladder irrigation. Overnight he did pass multiple small clots and had very severe bladder spasming. After discussing all different options, alternatives, risk, benefits it was decided to bring him to the operating room to see if we could try to definitively stop the bleeding. DESCRIPTION OF PROCEDURE: The patient was given 2 g of Ancef preoperatively and sequential compression devices were placed. He was brought into the operating room and general anesthesia was induced. He was placed in the lithotomy position and careful attention was paid that his pressure points were well padded and protected. A 22 Palestinian cystoscope was inserted. The urethra was noted to be open without any evidence of lesions or strictures. Upon entering the the prostatic urethra there was necrotic tissue seen and bleeding at the bladder neck where the prostate met. There was significant old clots in the bladder and these were irrigated completely. Both ureteral orifices were seen and there was no other abnormalities within the bladder. I then placed a 26 Palestinian resectoscope. I tried to just use the button to fulgurate the necrotic area but there was tissue hanging down which would have just cause continual bleeding. I then changed to a loop and resected the distal prostate in a circumferential fashion until there was no further necrotic tissue and no tissue hanging. This area was fulgurated. The patient was returned to the recovery room in stable condition after a 22 Palestinian three-way Ernst catheter was replaced with 30 cc in the balloon. Continuous bladder irrigation was running completely clear postoperatively. I called the son with the results. AFUA BOX MD Oct 19, 2020 13:06
[2020-10-19] MEDS ORDERED: ONDANSETRON 4MG/2ML VIAL IV PRN (13:20)
[2020-10-19] MEDS ORDERED: fentaNYL 100 MCG/2 ML INJECTION (J3010) IV PRN (13:20)
[2020-10-19] MEDS ORDERED: oxyCODONE 5MG TAB PO PRN (13:20)
[2020-10-19] MEDS ORDERED: LR 1,000 ML IV SCH (13:20)
[2020-10-19 14:13] LABS: HEMATOCRIT 40.7 % (42.0-52.0); HEMOGLOBIN 13.8 g/dl (13.5-17.5)
--- NOTE | 2020-10-19 15:02 | IPNPDOC ---
Text Note Date of Service The patient was seen on 10/19/20. NOTE Subjective: Patient continues to have hematuria with a small blood clots in his urine. Patient signed consent for cystoscopy later today Objective: GENERAL APPEARANCE: NAD HEENT: no scleral icterus, no JVD, EOMI CARDIOVASCULAR: S1S2 LUNGS: CTA ABDOMEN: soft & not tender w palpation MUSCULOSKELETAL: no cyanosis, no swelling INTEGUMENT: no generalized pallor NEUROLOGICAL: cranial nerve function from 2-12 intact, follows commands, speech not dysarthric Assessment/Plan Patient is 71 years old male with past medical history of hyperlipidemia, type 2 diabetes, BPH, hypertension, bladder cancer status post TURB presented to hospital with hematuria. Patient stated that he had TURB on October 02 and after that he had intermittent hematuria. Yesterday he noticed that hematuria progressively became worse he developed blood clots in his urine and subsequently urinary retention. He went to ER Ernst catheter was placed. ER contacted to urologist Dr. Mejia who recommended continuous bladder irrigation. In ER patient was found to have no leukocytosis, hemoglobin of 14.2. Patient denied fever, chills, nausea, syncope, chest pain, palpitations, diarrhea (1) Hematuria Patient has continuous blood clots despite of continuous bladder irrigation Continue Bactrim p.o. Dr. Mejia proceed with cystoscopy today (2) Bladder cancer Follow-up with urologist in the outpatient settings (3) Hypertension I added lisinopril 10 mg to his regimen (4) Type 2 diabetes mellitus Diabetes diet Insulin sliding scale (5) Hyperlipidemia Continue statin VS,Fishbone, I+O VS, Fishbone, I+O Laboratory Tests 10/18/20 20:06 10/19/20 02:16 10/19/20 05:43 10/19/20 14:00 Vital Signs Date Time Temp Pulse Resp B/P (MAP) Pulse Ox O2 Delivery O2 Flow Rate FiO2 10/19/20 13:30 77 18 119/61 (80) 94 Room Air 10/19/20 13:20 97.7 I&O- Last 24 Hours up to 6 AM 10/19/20 06:00 Intake Total 360 ml Output Total 3775 ml Balance -3415 ml SUZE AGOSTO DO Oct 19, 2020 15:02
[2020-10-19] MEDS: TOLTERODINE TARTRATE 2 MG LA CAP (DETROL LA) PO SCH ×2 (15:18→20:11)
[2020-10-19 19:55] LABS: HEMATOCRIT 41.4 % (42.0-52.0); HEMOGLOBIN 13.9 g/dl (13.5-17.5)
[2020-10-19] MEDS: ATORVASTATIN 20 MG TAB PO SCH (20:11)
[2020-10-20 02:00] VITALS: BP 128/60
[2020-10-20 02:03] LABS: BASO % 0.1 % (0.0-1.0); HEMATOCRIT 39.2 % (42.0-52.0); HEMOGLOBIN 13.4 g/dl (13.5-17.5); LYMPH # 1.5 10^3/uL (1.5-5.0); LYMPH % 10.2 % (24.0-44.0); MEAN CORPUSCULAR HEMOGLOBIN 31.6 pg (27.0-33.0); MEAN CORPUSCULAR HGB CONC 34.2 g/dl (32.0-36.5); MEAN CORPUSCULAR VOLUME 92.5 fl (80.0-96.0); MONO # 1.1 10^3/uL (0.0-0.8); MONO % 7.5 % (2.0-8.0); NEUTROPHILS # 11.8 10^3/uL (1.5-8.5); NEUTROPHILS % 81.8 % (36.0-66.0); PLATELET COUNT, AUTOMATED 304 10^3/uL (150-450); RED BLOOD COUNT 4.24 10^6/uL (4.30-6.10); WHITE BLOOD COUNT 14.5 10^3/uL (4.0-10.0)
[2020-10-20 02:38] LABS: ALBUMIN 3.4 GM/DL (3.2-5.2); ALT/SGPT 55 U/L (12-78); BILIRUBIN,TOTAL 0.5 MG/DL (0.2-1.0); BLOOD UREA NITROGEN 19 MG/DL (7-18); CALCIUM LEVEL 8.8 MG/DL (8.8-10.2); CARBON DIOXIDE LEVEL 23 MEQ/L (21-32); CHLORIDE LEVEL 108 MEQ/L (98-107); CREATININE FOR GFR 0.95 MG/DL (0.70-1.30); GLOMERULAR FILTRATION RATE > 60.0 (>42); GLUCOSE, FASTING 125 MG/DL (70-100); MAGNESIUM LEVEL 2.3 MG/DL (1.8-2.4); POTASSIUM SERUM 4.4 MEQ/L (3.5-5.1); SODIUM LEVEL 139 MEQ/L (136-145); TOTAL PROTEIN 6.6 GM/DL (6.4-8.2)
--- NOTE | 2020-10-20 02:46 | IPNPDOC ---
Text Note Date of Service Significant event NOTE Patient noted to have hallucinations described as seeing ants on the wall. Pt otherwise oriented without any neuro deficits. He described this after being woken up for lab draw. Of note, there are several lights in pt's room at night which may be shining in his eyes and giving an optical illusion; the computer monitor was turned away and other methods to decrease the artificial light, but pt still reported seeing some on wall (but less). CBI is ongoing and reyna without kinks/ draining well. Pt does have known developing dementia and hx of sensitivity to sedative medications/ anesthesia/ pain medications that easily alter him. Documented in chart review pt has at times been altered during hospital stays for up to a week after some agents. Pt does take xanax prn at home, he has not taken any tonight. Of note, some of pt's AM labs did come back. CMP pend, CBC with leukocytosis- this could be reactive given the procedure or possibly some developing infection. Plan for lactic draw although pt is upset regarding being woken up and refuses current lab draw. He is afebrile, normotensive and not tachycardic. Plan for monitoring, encourage pt to sleep and Delirium precautions. Will give pt time to rest and relax, and attempt labs to be drawn later this AM. WCTM. VS,Fishbone, I+O VS, Fishbone, I+O Laboratory Tests 10/19/20 05:43 10/19/20 14:00 10/19/20 19:45 10/20/20 01:52 Vital Signs Date Time Temp Pulse Resp B/P (MAP) Pulse Ox O2 Delivery O2 Flow Rate FiO2 10/19/20 22:00 98.2 90 18 123/63 (83) 98 Room Air l I&O- Last 24 Hours up to 6 AM 10/20/20 06:00 Intake Total 1660 ml Output Total 1825 ml Balance -165 ml DHARA MATA NP Oct 20, 2020 02:46
[2020-10-20] MEDS ORDERED: OLANZapine INTRAMUSCULAR 10MG VIAL IM PRN (03:45)
--- NOTE | 2020-10-20 04:25 | IPNPDOC ---
Text Note Date of Service The patient was seen on 10/20/20. NOTE Significant event. Notified patient agitated and hyperactive with increased paranoid hallucinations. Patient seen at bedside with staff. De-escalation techniques utilized and patient vocalized his concerns he describes his mood as angry. He is notably hyperactive slightly diaphoretic joshua complexion as he quickly explains how he saw people behind a tree outside carrying said tree that was cut down and he alludes to concerns regarding them trying to come into the room. Additionally, he again reports the lights and recording/camera lights in the hospital room. He required several videos and pictures on his phone to show and most of which include lights off of the white board and patient does respond to reorientation and explaining the red light is from the TV on the white board, etc. However, he is still adamant other people had come into his room. When explaining staff and other personnel walked by his room on the floor he may have heard them in attempts to reassure him, he did nod. Goals of conversation as we work to redirect patient included reiterated patient is safe and that he is in the hospital. He is well aware of his Ernst and the need to keep it in good position. He understands that he is to go home once urology recommends. After several minutes with staff and soothing tones he is slightly more calm and approachable and redirected. He agrees to repositioning and checking his catheter; which showed good clear yellow output. He agrees to lab draw. He is not seeing people or ants by end of exam, but does still regard the computer as a camera and some paranoid type expressions when thinking about ongoing's outside of the room. He is still very talkative and fixated on showing the pictures and videos that he took while he was in the bed, but does agree to try to relax and rest. Will write for as needed Zyprexa for agitation if patient should further escalate behavior/hyperactivity with hallucinations. Consider differentials for possible causes. Blood glucose was checked and is 148. Lactic pending given patient's leukocytosis. Patient encouraged to stay in bed. Consider Ign[facility] psych consult pending clinical course. [facility] VS,Fishbone, I+O VS, Fishbone, I+O Laboratory Tests 10/19/20 05:43 10/19/20 14:00 10/19/20 19:45 10/20/20 01:49 10/20/20 01:52 Vital Signs Date Time Temp Pulse Resp B/P (MAP) Pulse Ox O2 Delivery O2 Flow Rate FiO2 10/19/20 22:00 98.2 90 18 123/63 (83) 98 Room Air I&O- Last 24 Hours up to 6 AM 10/20/20 05:59 Intake Total 1660 ml Output Total 1925 ml Balance -265 ml DHARA MATA NP Oct 20, 2020 04:25
[2020-10-20] MEDS ORDERED: NS 1,000 ML IV ONE (05:00)
[2020-10-20 06:00] VITALS: BP 131/60
[2020-10-20] MEDS: HumaLOG INSULIN (NovoLOG) PER UNIT SC SCH ×4 (07:30→21:00)
[2020-10-20 08:04] LABS: HEMATOCRIT 38.5 % (42.0-52.0)
[2020-10-20] MEDS: BACTRIM 160MG/800MG DS TAB PO SCH ×2 (09:36→22:03)
[2020-10-20] MEDS: TOLTERODINE TARTRATE 2 MG LA CAP (DETROL LA) PO SCH ×2 (09:36→21:00)
[2020-10-20] MEDS: ASPIRIN 81MG ENTERIC TABLET PO SCH (09:36)
[2020-10-20] MEDS: CitaloPRAM (CeleXA) 20 MG TAB PO SCH (09:36)
[2020-10-20 10:00] VITALS: BP 135/79
[2020-10-20] MEDS ORDERED: BACTDSTA PO (11:18)
[2020-10-20] MEDS ORDERED: DETR2CAP PO (11:18)
[2020-10-20] MEDS ORDERED: TRAM-533 PO (11:18)
--- NOTE | 2020-10-20 13:32 | IPNPDOC ---
Text Note Date of Service The patient was seen on 10/20/20. NOTE Patient was very agitated with paranoid hallucinations last night. 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 We avoided giving him Versed but obviously this did not help significantly. He has been afebrile and his H&H is stable. His urine is completely clear this morning. We will try to take out the Ernst catheter and do a voiding trial. Physical exam: Well-developed well-nourished male lying in the hospital bed in no apparent respiratory distress. He seems to be alert and oriented right now. He has no CVA tenderness. His abdomen is soft and nontender. His extremities show no cyanosis clubbing or edema. Impression: -Postop day #1 cystoscopy, clot irrigation, and partial TURP for bleeding after resection of a bladder cancer in [place] 10/01/2020 with a catheter replaced 10/02/2020 with clot retention -Postoperative delirium and change in mental status but according to his son this is happened before after anesthesia and that he does have early Alzheimer's Plan: -Remove the Ernst catheter now and check how much he voids and postvoid residuals. If he is able to void without difficulty he can go home without the Ernst catheter and follow-up with his urologist in [place] -Continue medical care as necessary and make sure that it is safe for the patient to go home since he does live by himself VSFabrice, I+O VS, Fabrice, I+O Laboratory Tests 10/19/20 14:00 10/19/20 19:45 10/20/20 01:49 10/20/20 01:52 10/20/20 07:36 Vital Signs Date Time Temp Pulse Resp B/P (MAP) Pulse Ox O2 Delivery O2 Flow Rate FiO2 10/20/20 10:00 97.6 82 18 135/79 (97) 97 Room Air I&O- Last 24 Hours up to 6 AM 10/20/20 06:00 Intake Total 1960 ml Output Total 1825 ml Balance 135 ml KAYCEE BOX MD Oct 20, 2020 13:32
[2020-10-20 14:00] VITALS: BP 153/73
--- NOTE | 2020-10-20 15:09 | IPNPDOC ---
Text Note Date of Service The patient was seen on 10/20/20. NOTE Subjective: Patient had hallucinations overnight, he was confused and agitated. In the morning he was alert, awake and oriented Objective: GENERAL APPEARANCE: NAD HEENT: no scleral icterus, no JVD, EOMI CARDIOVASCULAR: S1S2 LUNGS: CTA ABDOMEN: soft & not tender w palpation MUSCULOSKELETAL: no cyanosis, no swelling INTEGUMENT: no generalized pallor NEUROLOGICAL: cranial nerve function from 2-12 intact, follows commands, speech not dysarthric Assessment/Plan Patient is 71 years old male with past medical history of hyperlipidemia, type 2 diabetes, BPH, hypertension, bladder cancer status post TURB presented to hospital with hematuria. Patient stated that he had TURB on October 02 and after that he had intermittent hematuria. Yesterday he noticed that hematuria progressively became worse he developed blood clots in his urine and subsequently urinary retention. He went to ER Ernst catheter was placed. ER contacted to urologist Dr. Mejia who recommended continuous bladder irrigation. In ER patient was found to have no leukocytosis, hemoglobin of 14.2. Patient denied fever, chills, nausea, syncope, chest pain, palpitations, diarrhea (1) Hematuria Resolved after cystoscopy Continue Bactrim p.o. Follow-up with urologist in the outpatient settings We will remove Ernst catheter, voiding trial (2) Bladder cancer Follow-up with urologist in the outpatient settings (3) Hypertension I added lisinopril 10 mg to his regimen (4) Type 2 diabetes mellitus Diabetes diet Insulin sliding scale (5) Hyperlipidemia Continue statin Delirium Most likely secondary to anesthesia. Patient had the similar symptoms before after surgery I stopped suppository with belladonna. Deconditioning PT/OT VS,Fishbone, I+O VS, Fishbone, I+O Laboratory Tests 10/19/20 19:45 10/20/20 01:49 10/20/20 01:52 10/20/20 07:36 Vital Signs Date Time Temp Pulse Resp B/P (MAP) Pulse Ox O2 Delivery O2 Flow Rate FiO2 10/20/20 14:00 99.1 76 20 153/73 (99) 96 Room Air I&O- Last 24 Hours up to 6 AM 10/20/20 06:00 Intake Total 1960 ml Output Total 1825 ml Balance 135 ml SUZE AGOSTO DO Oct 20, 2020 15:09
[2020-10-20 22:00] VITALS: BP 111/66
[2020-10-20] MEDS: ACETAMINOPHEN TAB 650MG DOSE (2X325MG) PO PRN (22:03)
[2020-10-20] MEDS: ATORVASTATIN 20 MG TAB PO SCH (22:04)
[2020-10-21 06:00] LABS: BASO # 0.1 10^3/uL (0.0-0.2); BASO % 1.3 % (0.0-1.0); EOS # 0.3 10^3/uL (0.0-0.5); EOS % 2.9 % (0.0-3.0); HEMATOCRIT 40.7 % (42.0-52.0); HEMOGLOBIN 13.4 g/dl (13.5-17.5); LYMPH # 2.6 10^3/uL (1.5-5.0); MEAN CORPUSCULAR HEMOGLOBIN 30.9 pg (27.0-33.0); MEAN CORPUSCULAR HGB CONC 32.9 g/dl (32.0-36.5); MONO # 1.1 10^3/uL (0.0-0.8); MONO % 10.3 % (2.0-8.0); NEUTROPHILS # 6.5 10^3/uL (1.5-8.5); NEUTROPHILS % 60.8 % (36.0-66.0); PLATELET COUNT, AUTOMATED 313 10^3/uL (150-450); RED BLOOD COUNT 4.33 10^6/uL (4.30-6.10); WHITE BLOOD COUNT 10.7 10^3/uL (4.0-10.0)
[2020-10-21 06:19] VITALS: BP 114/72
[2020-10-21 06:32] LABS: ALBUMIN 3.3 GM/DL (3.2-5.2); ALT/SGPT 69 U/L (12-78); BILIRUBIN,TOTAL 0.7 MG/DL (0.2-1.0); BLOOD UREA NITROGEN 21 MG/DL (7-18); CALCIUM LEVEL 8.9 MG/DL (8.8-10.2); CARBON DIOXIDE LEVEL 26 MEQ/L (21-32); CHLORIDE LEVEL 109 MEQ/L (98-107); CREATININE FOR GFR 0.99 MG/DL (0.70-1.30); GLOMERULAR FILTRATION RATE > 60.0 (>42); GLUCOSE, FASTING 109 MG/DL (70-100); MAGNESIUM LEVEL 2.3 MG/DL (1.8-2.4); POTASSIUM SERUM 4.5 MEQ/L (3.5-5.1); SODIUM LEVEL 140 MEQ/L (136-145); TOTAL PROTEIN 6.4 GM/DL (6.4-8.2)
[2020-10-21] MEDS: TOLTERODINE TARTRATE 2 MG LA CAP (DETROL LA) PO SCH (10:03)
[2020-10-21] MEDS: HumaLOG INSULIN (NovoLOG) PER UNIT SC SCH ×2 (10:03→12:00)
[2020-10-21] MEDS: ASPIRIN 81MG ENTERIC TABLET PO SCH (10:03)
[2020-10-21 10:04] VITALS: BP 141/78
[2020-10-21] MEDS: CitaloPRAM (CeleXA) 20 MG TAB PO SCH (10:04)
[2020-10-21] MEDS: BACTRIM 160MG/800MG DS TAB PO SCH (10:04)
[2020-10-21 12:28] LABS: VITAMIN B12 LEVEL 451 PG/ML (247-911)
--- NOTE | 2020-10-21 15:55 | DS.PDOC ---
Discharge Summary General Date of Admission Oct 18, 2020 at 09:36 Date of Discharge 10/21/20 Discharge Summary PROCEDURES PERFORMED DURING STAY: [None]. ADMITTING DIAGNOSES: Hematuria Bladder cancer Hypertension Type 2 diabetes mellitus Hyperlipidemia Delirium Deconditioning DISCHARGE DIAGNOSES: Hematuria Bladder cancer Hypertension Type 2 diabetes mellitus Hyperlipidemia Delirium Deconditioning COMPLICATIONS/CHIEF COMPLAINT: Hematuria. HISTORY OF PRESENT ILLNESS: Patient is 71 years old male with past medical history of hyperlipidemia, type 2 diabetes, BPH, hypertension, bladder cancer status post TURB presented to hospital with hematuria. Patient stated that he had TURB on October 02 and after that he had intermittent hematuria. Yesterday he noticed that hematuria progressively became worse he developed blood clots in his urine and subsequently urinary retention. He went to ER Ernst catheter was placed. ER contacted to urologist Dr. Mejia who recommended continuous bladder irrigation. In ER patient was found to have no leukocytosis, hemoglobin of 14.2. Patient denied fever, chills, nausea, syncope, chest pain, palpitat ions, diarrhea HOSPITAL COURSE: During her hospital stay the following issues addressed (1) Hematuria Resolved after cystoscopy which was done by Dr. Mejia Patient received Bactrim p.o. Follow-up with urologist in the outpatient settings After removal of Ernst patient was able to void without any problem (2) Bladder cancer Follow-up with urologist in the outpatient settings (3) Hypertension I added lisinopril 10 mg to his regimen (4) Type 2 diabetes mellitus Diabetes diet Insulin sliding scale (5) Hyperlipidemia Continue statin Delirium Most likely secondary to anesthesia. Patient had the similar symptoms before after surgery I stopped suppository with belladonna. Resolved today DISCHARGE MEDICATIONS: Please see below. ALLERGIES: Please see below. PHYSICAL EXAMINATION ON DISCHARGE: VITAL SIGNS: Please see below. GENERAL APPEARANCE: NAD HEENT: no scleral icterus, no JVD, EOMI CARDIOVASCULAR: S1S2 LUNGS: CTA ABDOMEN: soft & not tender w palpation MUSCULOSKELETAL: no cyanosis, no swelling INTEGUMENT: no generalized pallor NEUROLOGICAL: cranial nerve function from 2-12 intact, follows commands, speech not dysarthric LABORATORY DATA: Please see below. PROGNOSIS: Fair ACTIVITY: [As tolerated]. DIET: Cardiac DISPOSITION: Home, Self-Care. ITEMS TO FOLLOWUP ON ON OUTPATIENT: With urologist and PCP DISCHARGE CONDITION: [Stable]. TIME SPENT ON DISCHARGE: 40 minutes. Vital Signs/I&Os Vital Signs Date Time Temp Pulse Resp B/P (MAP) Pulse Ox O2 Delivery O2 Flow Rate FiO2 10/21/20 10:04 141/78 10/21/20 06:19 98.1 72 18 97 Room Air I&O- Last 24 Hours up to 6 AM 10/21/20 06:00 Intake Total 1500 ml Output Total 1400 ml Balance 100 ml Laboratory Data Labs 24H Laboratory Tests 2 10/20/20 16:19: Bedside Glucose (Misc Panel) 98 10/20/20 20:37: Bedside Glucose (Misc Panel) 146H 10/21/20 05:35: Immature Granulocyte % (Auto) 0.7, Neutrophils (%) (Auto) 60.8, Lymphocytes (%) (Auto) 24.0, Monocytes (%) (Auto) 10.3H, Eosinophils (%) (Auto) 2.9, Basophils (%) (Auto) 1.3H, Neutrophils # (Auto) 6.5, Lymphocytes # (Auto) 2.6, Monocytes # (Auto) 1.1H, Eosinophils # (Auto) 0.3, Basophils # (Auto) 0.1, Nucleated Red Blood Cells % (auto) 0.0, Anion Gap 5L, Glomerular Filtration Rate > 60.0, Calcium Level 8.9, Magnesium Level 2.3, Total Bilirubin 0.7, Aspartate Amino Transf (AST/SGOT) 99H, Alanine Aminotransferase (ALT/SGPT) 69, Alkaline Phosphatase 79, Total Protein 6.4, Albumin 3.3, Albumin/Globulin Ratio 1.1 10/21/20 11:43: Bedside Glucose (Misc Panel) 155H CBC/BMP Laboratory Tests 10/21/20 05:35 FSBS Laboratory Tests Test 10/20/20 16:19 10/20/20 20:37 10/21/20 11:43 Range/Units Bedside Glucose (Misc Panel) 98 146 155 83-110 MG/DL Microbiology Microbiology 10/18/20 Urine Culture - Final, Complete Discharge Medications Scheduled Aspirin (Aspirin EC) 81 Mg Tab, 81 MG PO DAILY, (Reported) Atorvastatin Calcium (Atorvastatin Calcium) 20 Mg Tab, 20 MG PO QPM, (Reported) Citalopram Hydrobromide (Citalopram HBr) 20 Mg Tab, 20 MG PO DAILY, (Reported) Sulfamethoxazole/Trimethoprim (Sulfamethoxazole-Tmp Ds Tablet) 1 Each Tablet, 2 TAB PO BID Tolterodine Tartrate (Detrol LA) 2 Mg Cap.er.24h, 2 MG PO BID Scheduled PRN Alprazolam (Alprazolam) 0.25 Mg Tab, 0.25 MG PO BID PRN for ANXIETY, (Reported) Tramadol HCl (Tramadol Hydrochloride) 50 Mg Tablet, 1 TAB PO Q6HP PRN for pain Allergies Coded Allergies: No Known Allergies (Unverified , 08/04/16) SUZE AGOSTO DO Oct 21, 2020 15:55
== END 2020-10-21 15:14 | disposition home or self-care (01) | DRG 666 ==
LOC: M ED 05:19 → M ED INP 09:36 → ENRESERV 14:20 → M MSPAV 15:08 → OBSVTOIN 10-20 16:28
PROVIDERS: ADMIT Internal Medicine; ATTEND Internal Medicine
PROC: 0V508ZZ Destruction of Prostate, Via Natural or Artificial Opening Endoscopic (ICD-10-PCS; 2020-10-19)
PROC: 0VB08ZZ Excision of Prostate, Via Natural or Artificial Opening Endoscopic (ICD-10-PCS; principal; 2020-10-19 11:19)
DX: R31.0 Gross hematuria (principal); F05 Delirium due to known physiological condition; C67.9 Malignant neoplasm of bladder, unspecified; N40.0 Benign prostatic hyperplasia without lower urinary tract symptoms; F41.9 Anxiety disorder, unspecified; Z79.82 Long term (current) use of aspirin; Z79.899 Other long term (current) drug therapy; E78.5 Hyperlipidemia, unspecified; E11.9 Type 2 diabetes mellitus without complications; I10 Essential (primary) hypertension; Z87.442 Personal history of urinary calculi; E80.4 Gilbert syndrome

== ENCOUNTER → 2020-11-01 | Outpatient (REF) | payer MEDICARE, OTHER ==
[~2020-11-01] MED LIST changes: +BACTDSTA PO; +DETR2CAP PO; +TRAM-533 PO
[2020-11-01 18:48] LABS: BLOOD UREA NITROGEN 17 MG/DL (7-18); CALCIUM LEVEL 8.9 MG/DL (8.8-10.2); CARBON DIOXIDE LEVEL 32 MEQ/L (21-32); CHLORIDE LEVEL 108 MEQ/L (98-107); CREATININE FOR GFR 0.84 MG/DL (0.70-1.30); GLOMERULAR FILTRATION RATE > 60.0 (>42); GLUCOSE, FASTING 96 MG/DL (70-100); POTASSIUM SERUM 4.3 MEQ/L (3.5-5.1); SODIUM LEVEL 143 MEQ/L (136-145)
[2020-11-01 19:06] LABS: HEMOGLOBIN A1c 6.2 %
== END ==
LOC: M SFHCADAM 15:31
PROVIDERS: ATTEND Family Medicine
DX: E11.9 Type 2 diabetes mellitus without complications (principal); F41.9 Anxiety disorder, unspecified
CPT/HCPCS: 80048; 83036; 84439; 84443; 99495; G0463

== ENCOUNTER → 2021-03-19 | Outpatient (REF) | payer MEDICARE, OTHER ==
[2021-03-19 12:38] LABS: HEMOGLOBIN 16.1 g/dl (13.5-17.5); MEAN CORPUSCULAR HEMOGLOBIN 30.2 pg (27.0-33.0); MEAN CORPUSCULAR HGB CONC 32.9 g/dl (32.0-36.5); MEAN CORPUSCULAR VOLUME 91.9 fl (80.0-96.0); PLATELET COUNT, AUTOMATED 226 10^3/uL (150-450); RED BLOOD COUNT 5.33 10^6/uL (4.30-6.10)
[2021-03-19 12:59] LABS: MALB URINE SIEMENS 42.9 MG/L; MAU/CREAT RATIO 14.2 MCG/MG (0.0-30.0)
[2021-03-19 13:07] LABS: ALT/SGPT 81 U/L (12-78); BLOOD UREA NITROGEN 19 MG/DL (7-18); CALCIUM LEVEL 9.5 MG/DL (8.8-10.2); CARBON DIOXIDE LEVEL 30 MEQ/L (21-32); CHLORIDE LEVEL 107 MEQ/L (98-107); CHOLESTEROL LEVEL 177 MG/DL (<200); CHOLESTEROL RISK RATIO 3.218 (<5); CREATININE FOR GFR 0.88 MG/DL (0.70-1.30); GLOMERULAR FILTRATION RATE > 60.0 (>42); GLUCOSE, FASTING 126 MG/DL (70-100); HDL CHOLESTEROL 55 MG/DL (>40); LDL CHOLESTEROL 106 MG/DL (<100); NON-HDL-C 122 MG/DL; POTASSIUM SERUM 4.2 MEQ/L (3.5-5.1); SODIUM LEVEL 144 MEQ/L (136-145); TOTAL PROTEIN 7.5 GM/DL (6.4-8.2); TRIGLYCERIDES LEVEL 82 MG/DL (<150)
[2021-03-19 13:17] LABS: HEMOGLOBIN A1c 6.2 %
== END ==
LOC: M SFHCADAM 10:01
PROVIDERS: ATTEND Family Medicine
DX: E11.9 Type 2 diabetes mellitus without complications (principal); E78.5 Hyperlipidemia, unspecified; C67.9 Malignant neoplasm of bladder, unspecified

== ENCOUNTER → 2021-09-19 | Outpatient (REF) | payer MEDICARE, OTHER ==
[2021-09-19 13:09] LABS: HEMOGLOBIN A1c 6.2 %
[2021-09-19 13:52] LABS: ALBUMIN 3.7 GM/DL (3.2-5.2); ALT/SGPT 55 U/L (12-78); BILIRUBIN,DIRECT 0.3 MG/DL (0.0-0.2); BILIRUBIN,TOTAL 1.2 MG/DL (0.2-1.0); BLOOD UREA NITROGEN 18 MG/DL (7-18); CALCIUM LEVEL 8.8 MG/DL (8.8-10.2); CARBON DIOXIDE LEVEL 31 MEQ/L (21-32); CHLORIDE LEVEL 107 MEQ/L (98-107); CHOLESTEROL LEVEL 150 MG/DL (<200); CHOLESTEROL RISK RATIO 2.727 (<5); CREATININE FOR GFR 0.86 MG/DL (0.70-1.30); FREE T4 1.07 NG/DL (0.76-1.46); GLOMERULAR FILTRATION RATE > 60.0 (>42); GLUCOSE, FASTING 117 MG/DL (70-100); HDL CHOLESTEROL 55 MG/DL (>40); LDL CHOLESTEROL 85 MG/DL (<100); NON-HDL-C 95 MG/DL; POTASSIUM SERUM 4.2 MEQ/L (3.5-5.1); SODIUM LEVEL 142 MEQ/L (136-145); TOTAL PROTEIN 7.1 GM/DL (6.4-8.2); TRIGLYCERIDES LEVEL 52 MG/DL (<150)
== END ==
LOC: M SFHCADAM 08:29
PROVIDERS: ATTEND Family Medicine
DX: E78.5 Hyperlipidemia, unspecified (principal); F41.9 Anxiety disorder, unspecified; E11.9 Type 2 diabetes mellitus without complications; R79.89 Other specified abnormal findings of blood chemistry

== ENCOUNTER → 2022-01-19 | Outpatient (CLI) | payer MEDICARE, OTHER ==
[~2022-01-19] MED LIST changes: +CELE10TA PO; +CELE20TA PO; +CITA10TA7 PO
== END ==
LOC: M LABSMTC 10:45
PROVIDERS: ATTEND Anesthesiology
DX: Z01.812 Encounter for preprocedural laboratory examination (principal); Z11.52 Encounter for screening for COVID-19

== ENCOUNTER 2022-01-22 07:18 | Day surgery (SDC) | payer MEDICARE, OTHER ==
[~2022-01-22] VITALS: Ht 182.9 cm; Wt 97.1 kg
[~2022-01-22 07:18] MED LIST changes: +CYCLOPENTOLATE 1% OPHTH SOLN 2ML BTL OS SCH; +FLURBIPROFEN 0.03% OPHTH SOLN 2.5 ML OS SCH; +LIDOCAINE 1% 1ML PF SYRINGE (OR EYE CASES) As Ordered ONE; +LR 1,000 ML IV SCH; +MAXITROL OPHTH SUSP 5ML As Ordered ONE; +PHENYLEPHRINE 2.5% OPHTH SOL 2ML OS SCH
[2022-01-22] MEDS ORDERED: fentaNYL 100 MCG/2 ML INJECTION As Ordered ONE (08:47)
[2022-01-22] MEDS ORDERED: MIDAZOLAM INJ 2MG/2ML VIAL (J2250 PER 1MG) As Ordered ONE (08:47)
[2022-01-22] MEDS: TETRACAINE 0.5% OPHTH SOLN 4ML OS SCH ×2 (09:31→09:34)
[2022-01-22 09:47] VITALS: BP 160/77
== END 2022-01-22 10:18 | disposition home or self-care (01) ==
LOC: M SDC 07:18
PROVIDERS: ATTEND Ophthalmology
DX: H25.12 Age-related nuclear cataract, left eye (principal); I10 Essential (primary) hypertension; Z85.51 Personal history of malignant neoplasm of bladder; Z79.82 Long term (current) use of aspirin; Z79.899 Other long term (current) drug therapy
CPT/HCPCS: 66983; J3010; V2632

== ENCOUNTER → 2022-03-19 | Outpatient (REF) | payer MEDICARE, OTHER ==
[~2022-03-19] MED LIST changes: -CYCLOPENTOLATE 1% OPHTH SOLN 2ML BTL OS SCH; -FLURBIPROFEN 0.03% OPHTH SOLN 2.5 ML OS SCH; -LIDOCAINE 1% 1ML PF SYRINGE (OR EYE CASES) As Ordered ONE; -LR 1,000 ML IV SCH; -MAXITROL OPHTH SUSP 5ML As Ordered ONE; -PHENYLEPHRINE 2.5% OPHTH SOL 2ML OS SCH
[2022-03-19 13:29] LABS: HEMOGLOBIN A1c 6.4 % (4.0-6.0)
[2022-03-19 13:31] LABS: ALBUMIN 4.1 G/DL (3.2-5.2); ALKALINE PHOSPHATASE 88 U/L (46-116); ALT/SGPT 89 U/L (7.0-40); AST/SGOT 54 U/L (<34); BILIRUBIN,TOTAL 1.1 MG/DL (0.3-1.2); BLOOD UREA NITROGEN 20 MG/DL (9-23); CALCIUM LEVEL 9.4 MG/DL (8.3-10.6); CARBON DIOXIDE LEVEL 29 MMOL/L (20-31); CHLORIDE LEVEL 106 MMOL/L (98-107); CREATININE FOR GFR 0.89 MG/DL (0.70-1.30); GLOMERULAR FILTRATION RATE > 60.0 (>42); GLUCOSE, FASTING 121 MG/DL (74-106); POTASSIUM SERUM 5.1 MMOL/L (3.5-5.1); SODIUM LEVEL 140 MMOL/L (136-145); TOTAL PROTEIN 7.1 G/DL (5.7-8.2)
[2022-03-19 13:53] LABS: CREATININE, URINE 476.6 MG/DL; MAU/CREAT RATIO 5.8 MCG/MG (0.0-30.0)
== END ==
LOC: M SFHCADAM 12:39
PROVIDERS: ATTEND Family Medicine
DX: E11.9 Type 2 diabetes mellitus without complications (principal)

== ENCOUNTER → 2022-04-28 | Outpatient (REF) | payer MEDICARE, OTHER | LOC: M SFHCADAM 11:22 | PROVIDERS: ATTEND Family Medicine | DX: E78.5 Hyperlipidemia, unspecified (principal); E11.9 Type 2 diabetes mellitus without complications; F41.9 Anxiety disorder, unspecified ==

== ENCOUNTER → 2022-10-07 | Outpatient (REF) | payer MEDICARE, OTHER ==
[2022-10-07 13:42] LABS: HEMOGLOBIN A1c 6.1 % (4.0-6.0)
[2022-10-07 13:56] LABS: ALBUMIN 3.9 G/DL (3.2-5.2); ALKALINE PHOSPHATASE 86 U/L (46-116); ALT/SGPT 60 U/L (7.0-40); AST/SGOT 32 U/L (<34); BILIRUBIN,TOTAL 1.3 MG/DL (0.3-1.2); BLOOD UREA NITROGEN 18 MG/DL (9-23); CALCIUM LEVEL 9.2 MG/DL (8.3-10.6); CARBON DIOXIDE LEVEL 29 MMOL/L (20-31); CHLORIDE LEVEL 105 MMOL/L (98-107); CHOLESTEROL LEVEL 161 MG/DL (<200); CHOLESTEROL RISK RATIO 3.15 (<5); CREATININE FOR GFR 0.82 MG/DL (0.70-1.30); FREE T4 0.93 NG/DL (0.89-1.76); GLOMERULAR FILTRATION RATE > 60.0 (>42); GLUCOSE, FASTING 130 MG/DL (74-106); LDL CHOLESTEROL 93.8 MG/DL (<100); POTASSIUM SERUM 4.8 MMOL/L (3.5-5.1); SODIUM LEVEL 140 MMOL/L (136-145); THYROID STIMULATING HORMONE 2.206 uIU/ML (0.55-4.78); TOTAL PROTEIN 7.2 G/DL (5.7-8.2); TRIGLYCERIDES LEVEL 81 MG/DL (<150)
== END ==
LOC: M SFHCADAM 08:41
PROVIDERS: ATTEND Family Medicine
DX: E78.5 Hyperlipidemia, unspecified (principal); E11.9 Type 2 diabetes mellitus without complications; F41.9 Anxiety disorder, unspecified

== ENCOUNTER → 2023-04-07 | Outpatient (REF) | payer MEDICARE, OTHER ==
[2023-04-07 14:51] LABS: HEMOGLOBIN A1c 6.2 % (4.0-6.0)
[2023-04-07 15:11] LABS: BLOOD UREA NITROGEN 26 MG/DL (9-23); CALCIUM LEVEL 8.7 MG/DL (8.3-10.6); CARBON DIOXIDE LEVEL 27 MMOL/L (20-31); CHLORIDE LEVEL 109 MMOL/L (98-107); CREATININE FOR GFR 0.76 MG/DL (0.70-1.30); GLOMERULAR FILTRATION RATE > 60.0 (>42); GLUCOSE, FASTING 113 MG/DL (74-106); POTASSIUM SERUM 4.1 MMOL/L (3.5-5.1); SODIUM LEVEL 144 MMOL/L (136-145)
== END ==
LOC: M SFHCADAM 08:39
PROVIDERS: ATTEND Family Medicine
DX: E11.9 Type 2 diabetes mellitus without complications (principal)

== ENCOUNTER → 2023-04-15 | Outpatient (REF) | payer MEDICARE, OTHER ==
[2023-04-15 13:26] LABS: HEMATOCRIT 49.1 % (42.0-52.0); HEMOGLOBIN 16.4 g/dl (13.5-17.5); MEAN CORPUSCULAR HEMOGLOBIN 31.3 pg (27.0-33.0); MEAN CORPUSCULAR HGB CONC 33.4 g/dl (32.0-36.5); MEAN CORPUSCULAR VOLUME 93.7 fl (80.0-96.0); PLATELET COUNT, AUTOMATED 230 10^3/uL (150-450); RED BLOOD COUNT 5.24 10^6/uL (4.30-6.10); WHITE BLOOD COUNT 7.4 10^3/uL (4.0-10.0)
[2023-04-15 13:56] LABS: ALKALINE PHOSPHATASE 79 U/L (46-116); ALT/SGPT 61 U/L (7.0-40); AST/SGOT 29 U/L (<34); BILIRUBIN,TOTAL 0.9 MG/DL (0.3-1.2); BLOOD UREA NITROGEN 24 MG/DL (9-23); CARBON DIOXIDE LEVEL 30 MMOL/L (20-31); CHLORIDE LEVEL 105 MMOL/L (98-107); CREATININE FOR GFR 0.74 MG/DL (0.70-1.30); FOLATE > 24.00 NG/ML (>5.4); FREE T4 1.07 NG/DL (0.89-1.76); GLOMERULAR FILTRATION RATE > 60.0 (>42); GLUCOSE, FASTING 116 MG/DL (74-106); POTASSIUM SERUM 4.8 MMOL/L (3.5-5.1); SODIUM LEVEL 137 MMOL/L (136-145); TOTAL PROTEIN 7.2 G/DL (5.7-8.2); VITAMIN B12 LEVEL 503 PG/ML (211-911)
== END ==
LOC: M SFHCADAM 10:09
PROVIDERS: ATTEND Family Medicine
DX: R41.3 Other amnesia (principal)

== ENCOUNTER → 2024-02-08 | Outpatient (CLI) | payer MEDICARE, OTHER ==
[2024-02-08 13:27] LABS: HEMATOCRIT 45.6 % (42.0-52.0); HEMOGLOBIN 14.9 g/dl (13.5-17.5); MEAN CORPUSCULAR HGB CONC 32.7 g/dl (32.0-36.5); MEAN CORPUSCULAR VOLUME 94.8 fl (80.0-96.0); PLATELET COUNT, AUTOMATED 219 10^3/uL (150-450); RED BLOOD COUNT 4.81 10^6/uL (4.30-6.10); WHITE BLOOD COUNT 8.3 10^3/uL (4.0-10.0)
[2024-02-08 13:46] LABS: HEMOGLOBIN A1c 5.9 % (4.0-6.0)
[2024-02-08 13:54] LABS: ALKALINE PHOSPHATASE 90 U/L (40-129); ALT/SGPT 73 U/L (7.0-40); AST/SGOT 39 U/L (<34); BILIRUBIN,TOTAL 1.1 MG/DL (0.3-1.2); BLOOD UREA NITROGEN 22 MG/DL (9-23); CALCIUM LEVEL 9.2 MG/DL (8.3-10.6); CARBON DIOXIDE LEVEL 29 MMOL/L (20-31); CHLORIDE LEVEL 106 MMOL/L (98-107); CHOLESTEROL LEVEL 171 MG/DL (<200); CHOLESTEROL RISK RATIO 3.18 (<5); CREATININE FOR GFR 0.78 MG/DL (0.70-1.30); GLOMERULAR FILTRATION RATE > 60.0 (>42); GLUCOSE, FASTING 107 MG/DL (74-106); HDL CHOLESTEROL 53.7 MG/DL (>40); LDL CHOLESTEROL 102.7 MG/DL (<100); NON-HDL-C 117.3 MG/DL; SODIUM LEVEL 143 MMOL/L (136-145); TOTAL PROTEIN 7.3 G/DL (5.7-8.2); TRIGLYCERIDES LEVEL 73 MG/DL (<150)
[2024-02-08 15:21] LABS: AMORPHOUS SEDIMENT LARGE (NEGATIVE); APPEARANCE, URINE TURBID (CLEAR); BACTERIA, URINE AUTO NEGATIVE (NEGATIVE); BILIRUBIN, URINE AUTO NEGATIVE (NEGATIVE); BLOOD, URINE BLOOD NEGATIVE (NEGATIVE); CALCIUM OXALATE CRYSTALS SMALL; COLOR, URINE AMBER (YELLOW); GLUCOSE, URINE (UA) AUTO NEGATIVE (NEGATIVE); KETONE, URINE AUTO NEGATIVE (NEGATIVE); LEUKOCYTE ESTERASE, URINE AUTO NEGATIVE (NEGATIVE); MUCUS, URINE SMALL (NEGATIVE); NITRITE, URINE AUTO NEGATIVE (NEGATIVE); PROTEIN, URINE AUTO 1+ mg/dL (NEGATIVE); RBC, URINE AUTO 0 /HPF (0-3); SPECIFIC GRAVITY URINE AUTO 1.027 (1.002-1.035); SQUAMOUS EPITHELIAL CELL UR AU 0 /HPF (0-6); WBC, URINE AUTO 4 /HPF (0-3)
== END ==
LOC: M PLALAB 11:47
PROVIDERS: ATTEND Student in an Organized Health Care Education/Training Program
DX: R41.0 Disorientation, unspecified (principal); G30.0 Alzheimer's disease with early onset; E11.9 Type 2 diabetes mellitus without complications; E78.5 Hyperlipidemia, unspecified

== ENCOUNTER → 2024-02-24 | Outpatient (CLI) | payer MEDICARE, OTHER ==
[2024-02-24 11:39] LABS: FREE T4 1.19 NG/DL (0.89-1.76)
[2024-02-24 11:40] LABS: VITAMIN B12 LEVEL 589 PG/ML (211-911)
[2024-02-24 11:47] LABS: FOLATE > 24.00 NG/ML (>5.4)
== END ==
LOC: M LAB 10:09
PROVIDERS: ATTEND Family Medicine
DX: G30.0 Alzheimer's disease with early onset (principal); R41.0 Disorientation, unspecified

== ENCOUNTER → 2024-09-07 | Outpatient (CLI) | payer MEDICARE, OTHER ==
[2024-09-07 17:14] LABS: CALCIUM LEVEL 9.3 MG/DL (8.3-10.6); CARBON DIOXIDE LEVEL 30.0 MMOL/L (20-31); CHLORIDE LEVEL 105.0 MMOL/L (98-107); CREATININE FOR GFR 0.88 MG/DL (0.70-1.30); GLOMERULAR FILTRATION RATE 89.7 (>42); POTASSIUM SERUM 4.8 MMOL/L (3.5-5.1); SODIUM LEVEL 145.0 MMOL/L (136-145)
[2024-09-07 17:39] LABS: ESTIMATED AVERAGE GLUCOSE 131.0 MG/DL (60-110)
== END ==
LOC: M PLALAB 14:30
PROVIDERS: ATTEND Family Medicine
DX: E11.9 Type 2 diabetes mellitus without complications (principal)